=== PATIENT | female | born 1990 | race Caucasian/White ===

== ENCOUNTER 2018-05-21 21:58 | Inpatient (IN) ==
[2018-05-21] MEDS ORDERED: Sodium Chlor 0.9% Inj 500 ML IV.SIG PRN (22:40)
[2018-05-21] MEDS ORDERED: fentaNYL Citrate Inj 100 MCG/2 ML Ampul IV.PUSH PRN (22:40)
[2018-05-21] MEDS ORDERED: Oxytocin 30 Units/500ml Premix 30 UNITS/500 ML BAG IV.SIG ONE (22:40)
[2018-05-21] MEDS ORDERED: Naloxone Inj 0.4 MG/ML Vial IV.PUSH PRN (22:40)
[2018-05-21] MEDS ORDERED: Sod Chloride 0.9% Inj 1,000 ML IV.CONT PRN (22:40)
[2018-05-21] MEDS ORDERED: Citric Acid/Sodium Citrate Liq 30 ML UDC PO SCH (22:45)
--- NOTE | 2018-05-21 22:48 | ED ---
History of Present Illness Primary Care Physician: NOT REQUIRED Agnes Leyva Chief Complaint: contractions History of Present Illness: Pt is a 27 yo at 39 weeks and 3 days, who presents with contractions all day, but worsening since 20:00. Pt with care with Agnes Leyva. 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 Other pregnancies have been uncomplicated. Pt denies vaginal bleeding or leaking. Active movements. Weeks Gestation:: 39 Para: 3 : 5 Total # of Miscarriage(s): 1 Review of Systems All other systems reviewed negative except as stated in HPI PMFSH - Medical / Surgical Hx Neg / Unobtainable Surgical History: No Previous Surgery - Medical History Medical History: Medical History (Last Updated 05/21/18 @ 22:43 by Chucho Mccord MD) Obesity - Social History I have reviewed the patient's Social History: Yes - Tobacco History Second Hand Smoke Exposure: No Tobacco Use In Past 30 Days: No Smoking Status: Never smoker - Substance Use History Substance History: No History of Abuse Medications and Allergies Allergies Allergy/AdvReac Type Severity Reaction Status Date / Time No Known Allergies Allergy Unverified 05/21/18 22:39 Exam Vital signs: Vital Signs 05/21/18 22:18 Temperature 98.2 F Pulse Rate 105 H Respiratory Rate 18 Blood Pressure 116/82 - Constitutional no acute distress, obese - Routine HEENT Exam Head: Present: normocephalic Eye: Present: PERRL - Routine Neck Exam Present: supple - Routine Respiratory Exam Present: CTA bilaterally - Routine Cardiovascular Exam Present: RRR - Routine Abdominal Exam Present: soft - Routine Skin Exam Present: intact - Routine Neurological Exam Present: alert, oriented X3 - Additional findings Additional findings: FHR Cat1, 150s, moderate variability, accels, no decells TOCO: q 2-3 minutes SVE: 3cm/70%/-2, bulging bag, posterior Assessment and Plan - Diagnosis (1) Admitted to labor and delivery Code(s): Z78.9 - Other specified health status Status: Acute (2) with 39 completed weeks gestation Code(s): Z3A.39 - 39 weeks gestation of Status: Acute - Plan 39 weeks , in labor Discharge Plan - Discharge Disposition Patient Disposition: 30 Still Patient - Discharge Condition Condition: Good - Physicians Team ED Provider: Chucho Mccord Primary Care Provider: NOT REQUIRED,
[2018-05-21] MEDS ORDERED: Penicillin G Potassium Inj 5,000,000 UNIT in Sodium Chloride 0.9% Inj 100 ML IV.SIG ONE (23:00)
--- NOTE | 2018-05-21 23:04 | P.HPOB ---
History of Present Illness Primary Care Physician: LAUREN LANCE Chief Complaint: contractions History of Present Illness: Pt is a 27 yo at 39 weeks and 3 days who presents in labor. Pt reports strong contractions since 20:00. care with Lauren Lance complicated by positive GBS carrier status. On cervical exam, pt is 3cm dilated with bulging bag, and nam 2-3 minutes apart. No vaginal leaking or discharge. Active movements. Weeks Gestation:: 39 Para: 3 : 5 Total # of Miscarriage(s): 1 - Inpatient Certification I certify that the inpatient services were ordered in accordance with Medicare regulations governing the order. This includes certification that hospital inpatient services are reasonable and necessary and in the case of services not specified as inpatient-only under 42 CFR 419.22(n), that they are appropriately provided as inpatient services in accordance to with the 2-midnight benchmark under 43 CFR 412.3(e) Estimated Total Length of Stay (Days): 2 Plans for Post Hospital Care: Home Review of Systems All other systems reviewed negative except as stated in HPI PMFSH - Medical / Surgical Hx Neg / Unobtainable Surgical History: No Previous Surgery - Medical History Medical History: Medical History (Last Updated 05/21/18 @ 22:51 by Chucho Mccord MD) Obesity - Social History I have reviewed the patient's Social History: Yes - Tobacco History Second Hand Smoke Exposure: No Tobacco Use In Past 30 Days: No Smoking Status: Never smoker - Substance Use History Substance History: No History of Abuse Medications and Allergies Active Medications: Active Medications Citric Acid/Sodium Citrate (Sodium Citrate/Citric Acid Liq) 30 ml PO FAMILY SUPPORT COORDINATOR [facility] Stop: 05/25/18 22:44 Fentanyl Citrate (Fentanyl Inj) 50 mcg IV.PUSH Q1H PRN PRN Reason: Pain Scale 3 - 5 Fentanyl Citrate (Fentanyl Inj) 100 mcg IV.PUSH Q1H PRN PRN Reason: PAIN SCALE 6 TO 10 Lactated Ringer's (Lr 1000 Ml Inj) 1,000 mls @ 125 mls/hr IV.CONT .Q8H [facility] Lactated Ringer's (Lr 1000 Ml Inj) 1,000 mls @ 3,000 mls/hr IV.SIG UNSCH PRN PRN Reason: compromise or epidural Sodium Chloride (Ns Inj) 500 mls @ 1,000 mls/hr IV.SIG UNSCH PRN PRN Reason: SEE LABEL COMMENTS Oxytocin (Pitocin 30 Units/Ns 500 Ml Premix) 30 units in 500 mls @ 999 mls/hr IV.SIG BOLUS ONE Stop: 05/21/18 23:10 Penicillin G Potassium 5,000, (000 unit/ Sodium Chloride) 100 mls @ 200 mls/hr IV.SIG ONCE ONE Stop: 05/21/18 23:29 Penicillin G Potassium 2,500, (000 unit/ Sodium Chloride) 100 mls @ 200 mls/hr IV.SIG Q4H SON Sodium Chloride (Ns Inj) 1,000 mls @ 100 mls/hr IV.CONT .Q10H PRN PRN Reason: SEE LABEL COMMENTS Lidocaine HCl (Xylocaine 1% Inj) 0.1 ml I-DERMAL PRN PRN PRN Reason: For IV start Stop: 05/24/18 22:39 Lidocaine HCl (Xylocaine 1% Inj) 10 ml INFILTRATN PRN PRN PRN Reason: For episiotomy repair Stop: 05/23/18 22:39 Mineral Oil (Muri-Lube Oil) 10 ml TOPICAL PRN PRN PRN Reason: PRN perineal massage Naloxone HCl (Narcan Inj) 0.1 mg IV.PUSH Q2M PRN PRN Reason: for opiate reversal Allergies Allergy/AdvReac Type Severity Reaction Status Date / Time No Known Allergies Allergy Unverified 05/21/18 22:39 Exam Vital signs: Vital Signs 05/21/18 22:18 Temperature 98.2 F Pulse Rate 105 H Respiratory Rate 18 Blood Pressure 116/82 - Constitutional mild distress (uncomfortable with contractions) - Routine HEENT Exam Head: Present: normocephalic Eye: Present: PERRL - Routine Neck Exam Present: supple - Routine Respiratory Exam Present: CTA bilaterally - Routine Cardiovascular Exam Present: RRR - Routine Abdominal Exam Present: soft - Routine Neurological Exam Present: alert, oriented X3 - Additional findings Additional findings: FHR cat 1 TOCO: q 2-3 minutes SVE: 3cm/70%/-2 , posterior, bulging bag Caprini VTE Risk Assessment Caprini VTE Risk Assessment: No/Low Risk (score <= 1) VTE Pharmacological Exception Reason: Epidural catheter, High risk for bleeding Caprini Risk Assessment Model: Point Value = 1 Point Value = 2 Point Value = 3 Point Value = 5 Age 41-60 Minor surgery BMI > 25 kg/m2 Swollen legs Varicose veins or History of unexplained or recurrent spontaneous Oral contraceptives or hormone replacement Sepsis (< 1 month) Serious lung disease, including pneumonia (< 1 month) Abnormal pulmonary function Acute myocardial infarction Congestive heart failure (< 1 month) History of inflammatory bowel disease Medical patient at bed rest Age 61-74 Arthroscopic surgery Major open surgery (> 45 min) Laparoscopic surgery (> 45 min) Malignancy Confined to bed (> 72 hours) Immobilizing plaster cast Central venous access Age >= 75 History of VTE Family history of VTE Factor V Leiden Prothrombin [id number] Lupus anticoagulant Anticardiolipin antibodies Elevated serum homocysteine Heparin-induced thrombocytopenia Other congenital or acquired thrombophilia Stroke (< 1 month) Elective arthroplasty Hip, pelvis, or leg fracture Acute spinal cord injury (< 1 month) Prophylaxis Regimen: Total Risk Factor Score Risk Level Prophylaxis Regimen 0-1 Low Early ambulation 2 Moderate Order ONE of the following: *Sequential Compression Device (SCD) *Heparin 5000 units SQ BID 3-4 Higher Order ONE of the following medications: *Heparin 5000 units SQ TID *Enoxaparin/Lovenox 40 mg SQ daily (WT < 150 kg, CrCl > 30 mL/min) *Enoxaparin/Lovenox 30 mg SQ daily (WT < 150 kg, CrCl > 10-29 mL/min) *Enoxaparin/Lovenox 30 mg SQ BID (WT < 150 kg, CrCl > 30 mL/min) AND/OR *Sequential Compression Device (SCD) 5 or more Highest Order ONE of the following medications: *Heparin 5000 units SQ TID (Preferred with Epidurals) *Enoxaparin/Lovenox 40 mg SQ daily (WT < 150 kg, CrCl > 30 mL/min) *Enoxaparin/Lovenox 30 mg SQ daily (WT < 150 kg, CrCl > 10-29 mL/min) *Enoxaparin/Lovenox 30 mg SQ BID (WT < 150 kg, CrCl > 30 mL/min) AND *Sequential Compression Device (SCD) Assessment and Plan - Diagnosis (1) Admitted to labor and delivery Code(s): Z78.9 - Other specified health status Status: Acute Plan: Admitted to L&D for term labor. Cervical dilatation with regular contractions (2) with 39 completed weeks gestation Code(s): Z3A.39 - 39 weeks gestation of Status: Acute (3) GBS carrier Code(s): Z22.330 - Carrier of Group B streptococcus Status: Acute Plan: Will aim for 2 doses of prophylactic antibiotics, prior to AROM
[2018-05-21 23:20] LABS: Baso # (Auto) 0.3 th/mm3 (0.0-0.2); Eos # (Auto) 0.1 th/mm3 (0.0-0.4); Eos % (Auto) 0.6 % (0.0-4.0); Hematocrit 38.9 % (35.0-46.0); Hemoglobin 12.8 gm/dL (11.6-15.3); Lymph # (Auto) 0.9 th/mm3 (1.0-4.8); Lymph % (Auto) 8.8 % (9.0-44.0); Mean Corpuscular HGB Conc 32.9 % (32.0-36.0); Mean Corpuscular Hemoglobin 29.3 pg (27.0-34.0); Mean Corpuscular Volume 89.1 fL (80.0-100.0); Mean Platelet Volume 8.9 fL (7.0-11.0); Mono # (Auto) 0.5 th/mm3 (0.0-0.9); Mono % (Auto) 4.9 % (0.0-8.0); Neut # (Auto) 8.7 th/mm3 (1.8-7.7); Neut % (Auto) 82.7 % (16.0-70.0); Platelet Count 172 th/mm3 (150-450); Red Blood Count 4.37 mil/mm3 (4.00-5.30); Red Cell Distribution Width 14.5 % (11.6-17.2); White Blood Count 10.5 th/mm3 (4.0-11.0)
[2018-05-21 23:22] LABS: Bilirubin,Urine Negative (Negative); Clarity,Urine Clear (Clear); Color,Urine Yellow (Yellw/Straw); Glucose,Urine (UA) Negative (Negative); Leukocyte Esterase,Urine Negative (Negative); Mucus,Urine Few /lpf (Occasional); Nitrite,Urine Negative (Negative); Specific Gravity,Urine 1.018 (1.002-1.035); Squamous Epithelial Cell,Urine 1 /hpf (0-5)
[2018-05-21 23:26] LABS: Amphetamine Urine With Conf Neg (Neg); Benzodiazepine Urine With Conf Neg (Neg)
[2018-05-21] MEDS: fentaNYL Citrate Inj 100 MCG/2 ML Ampul IV.PUSH PRN (23:28)
[2018-05-22 00:09] LABS: Lymphocytes 9 % (9-44); Monocytes 4 % (0-8); Toxic Vacuolation Present
[2018-05-22 00:12] LABS: RBC Morphology Normal (Normal)
[2018-05-22] MEDS: fentaNYL Citrate Inj 100 MCG/2 ML Ampul IV.PUSH PRN ×3 (01:14→03:38)
[2018-05-22] MEDS ORDERED: Penicillin G Potassium Inj 2,500,000 UNIT in Sodium Chlor 0.9% Inj 100 ML IV.SIG SCH (03:00)
--- NOTE | 2018-05-22 03:09 | P.OBLABOR ---
Subjective Interval history: Pt is uncomfortable with the contractions. Declines epidural. She is receiving 2nd dose antibiotic Objective Vital Signs: Vital Signs - 8 hr 05/21/18 22:18 05/21/18 23:30 05/22/18 00:15 Temperature 98.2 F 98.6 F Pulse Rate 105 H 96 H 89 Respiratory Rate 18 18 Blood Pressure 116/82 133/85 118/62 05/22/18 01:15 05/22/18 02:00 05/22/18 02:13 Temperature 98.2 F Pulse Rate 105 H 90 Respiratory Rate 20 20 Blood Pressure 123/75 127/64 05/22/18 03:03 Temperature Pulse Rate 114 H Respiratory Rate 20 Blood Pressure 80/53 L Objective: Pelvic Exam: Cervix: [soft] Dilatation: [8cm] Effacement: [80%] Station: [-1] Presentation: [vertex] Membranes: [ruptured] AROM done, clear Uterine Contractions: [q 1-3 minutes] FHT's: Category: [1] Baseline: [130] Reactive: [-] Variability: [moderate] Decels: [none] Weeks Gestation: 39 Patient Started Active Labor: Yes Medical Induction of Labor: No Artificial Rupture of Membrane: Yes Artificial ROM Date: 05/22/18 Artificial ROM Time: 03:00 Assessment and Plan - Diagnosis (1) Admitted to labor and delivery Code(s): Z78.9 - Other specified health status Status: Acute Plan: Progressing well in labor. AROM done Contine antibiotics for GBS prophylaxis. Expectant (2) with 39 completed weeks gestation Code(s): Z3A.39 - 39 weeks gestation of Status: Acute (3) GBS carrier Code(s): Z22.330 - Carrier of Group B streptococcus Status: Acute Plan: Will aim for 2 doses of prophylactic antibiotics, prior to AROM - Plan 39 weeks , in labor
[2018-05-22] MEDS ORDERED: Lidocaine 1% Inj 50 ML Vial ONE (03:31)
[2018-05-22] MEDS ORDERED: Benzocaine 20% Top Spray 60 ML Can TOPICAL PRN (04:16)
[2018-05-22] MEDS ORDERED: Naloxone Inj 0.4 MG/ML Vial IV.PUSH PRN (04:16)
[2018-05-22] MEDS ORDERED: Oxytocin 30 Units/500ml Premix 30 UNITS/500 ML BAG IV.CONT PRN (04:16)
[2018-05-22] MEDS ORDERED: Witch Hazel 50%/Glyderin 12.5% 40 Pad Jar RECTAL PRN (04:16)
--- NOTE | 2018-05-22 04:24 | P.OBDELI ---
Weeks Gestation: 39 Patient Started Active Labor: Yes Active Labor Start Date: 05/21/18 Active Labor Start Time: 20:00 Medical Induction of Labor: No Artificial Rupture of Membrane: Yes Artificial ROM Date: 05/22/18 Artificial ROM Time: 03:03 Anesthesia: None Episiotomy: none Vaginal Delivery: Spontaneous Presentation: Occiput anterior Nuchal Cord: x1 Delayed Cord Clamping (45 sec): Yes Placenta: Spontaneous delivery, 3 vessel cord Laceration: None Estimated blood loss (mL): 150 Infant: Male Male A Delivery Date: 05/22/18 Delivery Time: 04:11 Weight: 4005 kg score (1 min): 8 score (5 min): 9
[2018-05-22] MEDS: Senna/Docusate Sodium 8.6/50 MG Tablet PO SCH ×2 (09:20→23:28)
[2018-05-22] MEDS: Acetaminophen 325 MG Tablet PO PRN ×2 (14:34→20:06)
[2018-05-22] MEDS ORDERED: Measles/Mumps/Rubella Vaccine Inj 0.5 ML Vial SQ ONE (16:00)
[2018-05-22] MEDS ORDERED: Diphtheria/Tetanus/Pertussis Vaccine Inj 0.5 ML Syringe IM ONE (16:00)
[2018-05-23] MEDS: Acetaminophen 325 MG Tablet PO PRN ×5 (00:04→20:50)
[2018-05-23] MEDS: Senna/Docusate Sodium 8.6/50 MG Tablet PO SCH ×2 (08:59→20:49)
--- NOTE | 2018-05-23 09:25 | P.PNOB ---
Subjective Post day: 1 Interval history: 27 year old female s/p at 39/3 wks gestation, PPD1. AFVSS. Patient reports she is feeling well. Bleeding is decreasing and pain is well- controlled. She is breast feeding and bonding well with baby. Ambulating without difficulties. She is tolerating a diet without nausea or vomiting. She has not had a bowel movement. She has passed gas. Denies chest pain, dysuria, shortness of breath, or calf pain. Objective Vital Signs/I&O: Vital Signs 05/22/18 10:00 05/22/18 19:59 05/23/18 08:26 Temperature 98.2 F 98.2 F 97.5 F L Pulse Rate 82 73 75 Respiratory Rate 20 17 18 Blood Pressure 147/90 H 120/82 113/68 Result Diagrams: 05/21/18 23:00 Objective Remarks: GENERAL: Well-nourished, well-developed patient. CARDIOVASCULAR: Regular rate and rhythm without murmurs, gallops, or rubs. RESPIRATORY: Breath sounds equal bilaterally. No accessory muscle use. ABDOMEN/GI: Abdomen soft, non-tender. Fundus: Firm, non-tender at umbilicus. GENITOURINARY: Light to moderate bleeding. EXTREMITIES: No cyanosis or edema, non-tender, without signs of DVT. Medications and IVs: Active Medications Acetaminophen (Tylenol) 650 mg PO Q4H PRN PRN Reason: PAIN SCALE 1 TO 2 Last Admin: 05/23/18 08:59 Dose: 650 mg Al Hydroxide/Mg Hydroxide (Milk Of Magnesia Liq) 30 ml PO Q12H PRN PRN Reason: Mild Constipation Benzocaine (Americaine 20% [place]) 1 spray TOPICAL Q4H PRN PRN Reason: For Perineum Discomfort Oxytocin (Pitocin 30 Units/Ns 500 Ml Premix) 30 units in 500 mls @ 100 mls/hr IV.CONT UNSCH PRN PRN Reason: Heavy bleeding Last Admin: 05/22/18 06:01 Dose: 100 mls/hr Ibuprofen (Motrin) 800 mg PO Q8H PRN PRN Reason: For Cramping Last Admin: 05/23/18 04:21 Dose: 800 mg Naloxone HCl (Narcan Inj) 0.1 mg IV.PUSH Q2M PRN PRN Reason: for opiate reversal Ondansetron HCl (Zofran Odt) 4 mg PO Q6H PRN PRN Reason: NAUSEA OR VOMITING Senna/Docusate Sodium (Dorinda-Colace) 1 tab PO BID [facility] Last Admin: 05/23/18 08:59 Dose: 1 tab Sennosides (Senokot) 17.2 mg PO Q12H PRN PRN Reason: Moderate Constipation Sodium Chloride (Ns Flush) 2 ml IV.FLUSH BID [facility] Last Admin: 05/22/18 23:25 Dose: 2 ml Sodium Chloride (Ns Flush) 2 ml IV.FLUSH PRN PRN PRN Reason: FLUSH AFTER USING IV ACCESS Witch Vivian/Glycerin (Tucks Pads) 1 applicatio RECTAL QID PRN PRN Reason: HEMORRHOIDS Assessment and Plan - Plan 28 yo female s/p , PPD 1 - AFVSS - Continue routine care - Motrin PRN pain - Encourage OOB - Pelvic rest x 6 wks. - Contraception: patient is considering control pills - Anticipate D/C 1-2 days - Attending Attestation The exam, history, and the medical decision-making described in the above note were completed with the assistance of the resident physician. I reviewed and agree with the findings presented. I attest that I had a [id number] encounter with the patient on the same day, and personally performed and documented my assessment and findings in the medical record.
[2018-05-24] MEDS: Acetaminophen 325 MG Tablet PO PRN (04:21)
[2018-05-24] MEDS: Senna/Docusate Sodium 8.6/50 MG Tablet PO SCH (08:28)
--- NOTE | 2018-05-24 09:39 | P.PNOB ---
Subjective Interval history: 27 year old female s/p at 39/3 wks gestation, PPD2. AFVSS. Patient reports she is feeling well. Bleeding is decreasing and pain is well- controlled. She is bottle feeding and bonding well with baby. Ambulating without difficulties. She is tolerating a diet without nausea or vomiting. She has had a bowel movement. She has passed gas. Denies chest pain, dysuria, shortness of breath, or calf pain. She is ready to be discharged today. Objective Vital Signs/I&O: Vital Signs 05/23/18 21:00 05/24/18 08:00 Temperature 98.9 F 98.6 F Pulse Rate 65 97 H Respiratory Rate 18 18 Blood Pressure 111/72 111/69 Result Diagrams: 05/21/18 23:00 Objective Remarks: GENERAL: Well-nourished, well-developed patient. CARDIOVASCULAR: Regular rate and rhythm without murmurs, gallops, or rubs. RESPIRATORY: Breath sounds equal bilaterally. No accessory muscle use. ABDOMEN/GI: Abdomen soft, non-tender. Fundus: Firm, non-tender at umbilicus. GENITOURINARY: Light to moderate bleeding. EXTREMITIES: No cyanosis or edema, non-tender, without signs of DVT. Medications and IVs: Active Medications Acetaminophen (Tylenol) 650 mg PO Q4H PRN PRN Reason: PAIN SCALE 1 TO 2 Last Admin: 05/24/18 04:21 Dose: 650 mg Al Hydroxide/Mg Hydroxide (Milk Of Shalonda Arana) 30 ml PO Q12H PRN PRN Reason: Mild Constipation Benzocaine (Americaine 20% Top [place]) 1 spray TOPICAL Q4H PRN PRN Reason: For Perineum Discomfort Oxytocin (Pitocin 30 Units/Ns 500 Ml Premix) 30 units in 500 mls @ 100 mls/hr IV.CONT UNSCH PRN PRN Reason: Heavy bleeding Last Admin: 05/22/18 06:01 Dose: 100 mls/hr Ibuprofen (Motrin) 800 mg PO Q8H PRN PRN Reason: For Cramping Last Admin: 05/24/18 04:22 Dose: 800 mg Naloxone HCl (Narcan Inj) 0.1 mg IV.PUSH Q2M PRN PRN Reason: for opiate reversal Ondansetron HCl (Zofran Odt) 4 mg PO Q6H PRN PRN Reason: NAUSEA OR VOMITING Senna/Docusate Sodium (Dorinda-Colace) 1 tab PO BID [facility] Last Admin: 05/24/18 08:28 Dose: 1 tab Sennosides (Senokot) 17.2 mg PO Q12H PRN PRN Reason: Moderate Constipation Sodium Chloride (Ns Flush) 2 ml IV.FLUSH BID [facility] Last Admin: 05/24/18 05:05 Dose: Not Given Sodium Chloride (Ns Flush) 2 ml IV.FLUSH PRN PRN PRN Reason: FLUSH AFTER USING IV ACCESS Witch Vivian/Glycerin (Tucks Pads) 1 applicatio RECTAL QID PRN PRN Reason: HEMORRHOIDS Assessment and Plan - Plan 28 yo female s/p , PPD 2 - AFVSS - Continue routine care - Motrin PRN pain - Encourage OOB - Pelvic rest x 6 wks. - follow up with OB Provider in 6 weeks - Contraception: patient is considering control pills - Anticipate D/C today - Discussed with Dr. Garcia
== END 2018-05-24 12:55 | disposition home or self-care (01) ==
LOC: HOBED 21:58 → H2E 22:46 → H1EA 05-22 07:47
PROVIDERS: ADMIT Obstetrics & Gynecology; ATTEND Obstetrics & Gynecology